=== PATIENT | female | born 1970 | race American Indian/Alaskan Native ===

== ENCOUNTER 2020-12-13 15:08 | Observation (INO) | payer BC ==
--- NOTE | 2020-12-13 16:43 | Event Note ---
ED Screening Note ED Screening Note: Patient presents for shortness of breath, fever, diarrhea, chest pain She states that she did receive both doses of her COVID-19 vaccine Patient is febrile and tachycardic This initial assessment/diagnostic orders/clinical plan/treatment(s) is/are subject to change based on patients health status, clinical progression and re- assessment by fellow clinical providers in the ED. Further treatment and workup at subsequent clinical providers discretion. Patient/guardian urged not to elope from the ED as their condition may be serious if not clinically assessed and managed. Initial orders include: Code sepsis initiated Patient's adjusted body weight is 92 kg, will order her fluids according to adjusted body weight
[2020-12-13] MEDS ORDERED: ACETAMINOPHEN 325 MG TAB PO ONE (16:44)
[2020-12-13] MEDS ORDERED: SODIUM CHLORIDE 0.9% 1000 ML IV SOLN IV ONE (16:44)
[2020-12-13 16:55] LABS: Basophils # (Auto) 0.1 K/mm3 (0.0-0.1); Basophils % (Auto) 0.8 % (0.0-1.8); Eosinophils # (Auto) 0.1 K/mm3 (0.0-0.4); Eosinophils % (Auto) 0.5 % (0.0-4.3); Hematocrit 40.4 % (30.3-42.9); Hemoglobin 13.6 gm/dl (10.1-14.3); Lymphocytes % (Auto) 9.5 % (13.4-35.0); Mean Corpuscular HGB Conc 34 % (30-34); Mean Corpuscular Volume 95 fl (79-97); Monocytes # (Auto) 0.6 K/mm3 (0.0-0.8); Monocytes % (Auto) 5.5 % (0.0-7.3); Platelet Count 332 K/mm3 (140-440); Red Blood Count 4.25 M/mm3 (3.65-5.03); Red Cell Distribution Width 13.6 % (13.2-15.2)
[2020-12-13 17:12] LABS: Alanine Aminotransferase 25 units/L (7-56); BUN/Creatinine Ratio 9; Blood Urea Nitrogen 7 mg/dL (7-17); Calcium 9.7 mg/dL (8.4-10.2); Hemolysis Index 2
--- NOTE | 2020-12-13 17:35 | XRay Report ---
XR chest 1V ap INDICATION / CLINICAL INFORMATION: fever, sob, cp. COMPARISON: 11/27/2019 FINDINGS: SUPPORT DEVICES: None. HEART /PULMONARY VASCULATURE: No significant abnormality. LUNGS / PLEURA: No significant pulmonary or pleural abnormality. No pneumothorax. ADDITIONAL FINDINGS: No significant additional findings. IMPRESSION: 1. No acute findings. Signer Name: Jeremy Engel MD Signed: 12/13/2020 5:30 PM Workstation Name: [id number]
--- NOTE | 2020-12-13 18:33 | Cat Scan Report ---
CT angio chest INDICATION / CLINICAL INFORMATION: SOB, elevated d-dimer [id number] 100ml. TECHNIQUE: Axial CT images were obtained through the chest after injection of IV contrast. 3 plane MIP and/or 3D reconstructions were produced. All CT scans at this location are performed using CT dose reduction f or ALARA by means of automated exposure control. COMPARISON: None available. FINDINGS: PULMONARY ARTERIES: No central pulmonary artery filling defects. Image quality of the peripheral pulm onary arteries essentially nondiagnostic due to respiratory motion and poor contrast. HEART: No significant abnormality. MEDIASTINUM / JUNITO: No significant abnormality. LUNGS: Lungs are clear No pleural effusion. No pneumothorax. ADDITIONAL FINDINGS: None. UPPER ABDOMEN: No acute findings. SKELETAL STRUCTURES: No significant osseous abnormality. IMPRESSION: 1. No central pulmonary embolism. Image quality of the distal pulmonary arteries essentially nondiagn ostic due to respiratory motion and poor contrast desiccation. 2. No acute pulmonary findings. Signer Name: Ney Gómez MD Signed: 12/13/2020 6:28 PM Workstation Name: [id number]
[2020-12-13] MEDS ORDERED: ACETAMINOPHEN 325 MG TAB ONE (22:22)
[2020-12-13] MEDS ORDERED: cefTRIAXone/NS 1 GM/50 ML 1 GM/50 ML BAG IV ONE (23:40)
[2020-12-13] MEDS ORDERED: KETOROLAC 30 MG/1 ML INJ IV ONE (23:40)
[2020-12-13] MEDS ORDERED: AZITHROMYCIN/NS 500 MG/250 ML 500 MG/250 ML BAG IV ONE (23:41)
--- NOTE | 2020-12-13 23:45 | Emergency Department Report ---
HPI - General Chief Complaint: Fever Time Seen by Provider: 12/13/20 16:40 - HPI HPI: 50-year-old female with history of hypertension presents complaining of 3 days of URI symptoms including fevers, body aches, malaise, and headaches. She describes her headache as global and pressure-like. She says it comes and goes and comes on gradually. She says it feels exactly like the last time she had COVID-19 at the beginning of this year. She is vaccinated against COVID-19. She says in addition to those symptoms she has developed diarrhea with at least 10 loose stools per day. She has a mild dry cough and intermittently feels short of breath with minimal activity. She developed generalized weakness which was very profound over the last day and this is what prompted her to come in for further evaluation. She denies any associated vision change, back pain, chest pain, palpitations, nausea/vomiting, neck pain, abdominal pain, dysuria, vaginal discharge, melena/hematochezia, focal weakness, sensory changes, or any other significant symptoms. On review of systems she also indicates that she has lost her sense of smell and taste. When asked during physical exam she states that sometimes her right lower extremity is more swollen than the left but it just depends on the day. There are otherwise no known aggravating or alleviating factors. She has had no known exposures. ED Past Medical Hx - Past Medical History Hx Hypertension: Yes Hx Congestive Heart Failure: No Hx Diabetes: No Hx Asthma: No Hx COPD: No Additional medical history: Chronic hip and shoulder pain. Degenerative joint disease. Fibromyalgia - Surgical History Additional Surgical History: tubal ligation - Social History Smoking Status: Never Smoker - Medications Home Medications: Home Medications Medication Instructions Recorded Confirmed Last Taken Type Metformin HCl 500 mg PO DAILY MDD 2 tab by mouth 11/27/19 11/27/19 11/24/19 History Phentermine HCl 37.5 mg PO DAILY 11/27/19 11/27/19 Unknown History Benzonatate [Tessalon Perles] 100 mg PO Q8HR #15 capsule 12/02/19 Unknown Rx Famotidine [Pepcid] 20 mg PO BID #20 tablet 12/02/19 Unknown Rx oxyCODONE /ACETAMINOPHEN [Percocet 1 tab PO QHS #6 tablet 12/02/19 Unknown Rx 5/325] ED Review of Systems ROS: Stated complaint: HEADACHE/FEVER Other details as noted in HPI Constitutional: chills, fever, malaise, weakness, other (body aches) Eyes: denies: eye pain, vision change ENT: denies: throat pain, congestion Respiratory: cough, SOB with exertion. denies: wheezing Cardiovascular: edema. denies: chest pain, palpitations, syncope Endocrine: other (anosmia). denies: intolerance to cold, intolerance to heat, increased hunger, increased thirst Gastrointestinal: diarrhea. denies: abdominal pain, nausea, vomiting, constipation, melena, hematochezia Genitourinary: denies: dysuria, hematuria, discharge Musculoskeletal: denies: back pain, joint swelling Skin: denies: rash, lesions Neurological: headache. denies: weakness, numbness, paresthesias, confusion Psychiatric: anxiety Physical Exam - Physical Exam Vital Signs: Vital Signs 12/13/20 16:35 Temperature 101.4 F H Pulse Rate 145 H Respiratory 32 H Rate Blood Pressure 148/106 [Right] O2 Sat by Pulse 99 Oximetry Physical Exam: GENERAL: Obese female in no acute distress. Appears somnolent but is alert and oriented x4. HEAD: Normocephalic. No obvious signs of trauma. ENT: Dry mucous membranes. EYES: Extraocular movements are intact. Pupils are equal round and reactive to light bilaterally NECK: Supple. Full ROM is intact. Trachea is midline. LUNGS: Nonlabored breathing. Equal chest rise bilaterally. Clear to auscultation bilaterally. CARDIOVASCULAR: Tachycardic in the 130s to 140s with regular rate. No murmurs or rubs. VASCULAR: Cap refill < 2 seconds. 2+ pitting edema of the right lower extremity and 1+ pitting edema of the left lower extremity. ABDOMEN: Abdomen is soft and nondistended. There is no significant tenderness, guarding or rebound. SKIN: Skin is warm and dry NEURO: Patient is somnolent but awake, alert, and oriented. plumber gasfitter II-XII grossly intact. No focal deficits. Normal motor and sensory exam throughout. Normal spe ech. MUSCULOSKELETAL: No obvious deformities. No significant tenderness. Normal ROM throughout. BACK/SPINE: No costovertebral angle tenderness. ED Course Vital Signs 12/13/20 16:35 Temperature 101.4 F H Pulse Rate 145 H Respiratory 32 H Rate Blood Pressure 148/106 [Right] O2 Sat by Pulse 99 Oximetry ED Medical Decision Making - Lab Data Result diagrams: 12/13/20 16:42 12/14/20 00:22 Lab Results 12/13/20 12/13/20 12/13/20 Range/Units 16:42 16:42 16:42 WBC 10.5 (4.5-11.0) K/mm3 RBC 4.25 (3.65-5.03) M/mm3 Hgb 13.6 (10.1-14.3) gm/dl Hct 40.4 (30.3-42.9) % MCV 95 (79-97) fl MCH 32 (28-32) pg MCHC 34 (30-34) % RDW 13.6 (13.2-15.2) % Plt Count 332 (140-440) K/mm3 Lymph % (Auto) 9.5 L (13.4-35.0) % Runnels % (Auto) 5.5 (0.0-7.3) % Eos % (Auto) 0.5 (0.0-4.3) % Baso % (Auto) 0.8 (0.0-1.8) % Lymph # (Auto) 1.0 L (1.2-5.4) K/mm3 Runnels # (Auto) 0.6 (0.0-0.8) K/mm3 Eos # (Auto) 0.1 (0.0-0.4) K/mm3 Baso # (Auto) 0.1 (0.0-0.1) K/mm3 Seg Neutrophils % 83.7 H (40.0-70.0) % Seg Neutrophils # 8.8 H (1.8-7.7) K/mm3 PT (12.2-14.9) Sec. INR (0.87-1.13) APTT (24.2-36.6) Sec. D-Dimer 355.73 H (0-234) ng/mlDDU Sodium 135 L (137-145) mmol/L Potassium 3.9 (3.6-5.0) mmol/L Chloride 99.4 (98-107) mmol/L Carbon Dioxide 24 (22-30) mmol/L Anion Gap 16 mmol/L BUN 7 (7-17) mg/dL Creatinine 0.8 (0.6-1.2) mg/dL Estimated GFR > 60 ml/min BUN/Creatinine Ratio 9 % Glucose 111 H (65-100) mg/dL Lactic Acid (0.7-2.0) mmol/L Calcium 9.7 (8.4-10.2) mg/dL Ferritin (10.0-200.0) ng/mL Total Bilirubin 0.30 (0.1-1.2) mg/dL AST 24 (5-40) units/L ALT 25 (7-56) units/L Alkaline Phosphatase 145 H (35-129) units/L Lactate Dehydrogenase (91-180) units/L Total Creatine Kinase 378 H (30-135) units/L Troponin T < 0.010 (0.00-0.029) ng/mL C-Reactive Protein (0.00-1.30) mg/dL NT-Pro-B Natriuret Pep (0-450) pg/mL Total Protein 8.9 H (6.3-8.2) g/dL Albumin 4.0 (3.9-5) g/dL Albumin/Globulin Ratio 0.8 % TSH (0.270-4.200) mlU/mL 12/13/20 12/13/20 12/14/20 Range/Units 16:42 19:52 00:22 WBC (4.5-11.0) K/mm3 RBC (3.65-5.03) M/mm3 Hgb (10.1-14.3) gm/dl Hct (30.3-42.9) % MCV (79-97) fl MCH (28-32) pg MCHC (30-34) % RDW (13.2-15.2) % Plt Count (140-440) K/mm3 Lymph % (Auto) (13.4-35.0) % Runnels % (Auto) (0.0-7.3) % Eos % (Auto) (0.0-4.3) % Baso % (Auto) (0.0-1.8) % Lymph # (Auto) (1.2-5.4) K/mm3 Runnels # (Auto) (0.0-0.8) K/mm3 Eos # (Auto) (0.0-0.4) K/mm3 Baso # (Auto) (0.0-0.1) K/mm3 Seg Neutrophils % (40.0-70.0) % Seg Neutrophils # (1.8-7.7) K/mm3 PT (12.2-14.9) Sec. INR (0.87-1.13) APTT (24.2-36.6) Sec. D-Dimer (0-234) ng/mlDDU Sodium (137-145) mmol/L Potassium (3.6-5.0) mmol/L Chloride (98-107) mmol/L Carbon Dioxide (22-30) mmol/L Anion Gap mmol/L BUN (7-17) mg/dL Creatinine (0.6-1.2) mg/dL Estimated GFR ml/min BUN/Creatinine Ratio % Glucose (65-100) mg/dL Lactic Acid 1.00 2.40 H* 1.10 (0.7-2.0) mmol/L Calcium (8.4-10.2) mg/dL Ferritin (10.0-200.0) ng/mL Total Bilirubin (0.1-1.2) mg/dL AST (5-40) units/L ALT (7-56) units/L Alkaline Phosphatase (35-129) units/L Lactate Dehydrogenase (91-180) units/L Total Creatine Kinase (30-135) units/L Troponin T (0.00-0.029) ng/mL C-Reactive Protein (0.00-1.30) mg/dL NT-Pro-B Natriuret Pep (0-450) pg/mL Total Protein (6.3-8.2) g/dL Albumin (3.9-5) g/dL Albumin/Globulin Ratio % TSH (0.270-4.200) mlU/mL 12/14/20 12/14/20 12/14/20 Range/Units 00:22 00:22 00:22 WBC (4.5-11.0) K/mm3 RBC (3.65-5.03) M/mm3 Hgb (10.1-14.3) gm/dl Hct (30.3-42.9) % MCV (79-97) fl MCH (28-32) pg MCHC (30-34) % RDW (13.2-15.2) % Plt Count (140-440) K/mm3 Lymph % (Auto) (13.4-35.0) % Runnels % (Auto) (0.0-7.3) % Eos % (Auto) (0.0-4.3) % Baso % (Auto) (0.0-1.8) % Lymph # (Auto) (1.2-5.4) K/mm3 Runnels # (Auto) (0.0-0.8) K/mm3 Eos # (Auto) (0.0-0.4) K/mm3 Baso # (Auto) (0.0-0.1) K/mm3 Seg Neutrophils % (40.0-70.0) % Seg Neutrophils # (1.8-7.7) K/mm3 PT 13.4 (12.2-14.9) Sec. INR 0.96 (0.87-1.13) APTT 28.7 (24.2-36.6) Sec. D-Dimer 480.46 H (0-234) ng/mlDDU Sodium (137-145) mmol/L Potassium (3.6-5.0) mmol/L Chloride (98-107) mmol/L Carbon Dioxide (22-30) mmol/L Anion Gap mmol/L BUN (7-17) mg/dL Creatinine (0.6-1.2) mg/dL Estimated GFR ml/min BUN/Creatinine Ratio % Glucose 107 H (65-100) mg/dL Lactic Acid (0.7-2.0) mmol/L Calcium (8.4-10.2) mg/dL Ferritin 82.8 (10.0-200.0) ng/mL Total Bilirubin (0.1-1.2) mg/dL AST (5-40) units/L ALT (7-56) units/L Alkaline Phosphatase (35-129) units/L Lactate Dehydrogenase 255 H (91-180) units/L Total Creatine Kinase (30-135) units/L Troponin T (0.00-0.029) ng/mL C-Reactive Protein 4.80 H (0.00-1.30) mg/dL NT-Pro-B Natriuret Pep (0-450) pg/mL Total Protein (6.3-8.2) g/dL Albumin (3.9-5) g/dL Albumin/Globulin Ratio % TSH (0.270-4.200) mlU/mL 08/31/21 08/31/21 08/31/21 Range/Units 00:22 00:22 00:22 WBC (4.5-11.0) K/mm3 RBC (3.65-5.03) M/mm3 Hgb (10.1-14.3) gm/dl Hct (30.3-42.9) % MCV (79-97) fl MCH (28-32) pg MCHC (30-34) % RDW (13.2-15.2) % Plt Count (140-440) K/mm3 Lymph % (Auto) (13.4-35.0) % Runnels % (Auto) (0.0-7.3) % Eos % (Auto) (0.0-4.3) % Baso % (Auto) (0.0-1.8) % Lymph # (Auto) (1.2-5.4) K/mm3 Runnels # (Auto) (0.0-0.8) K/mm3 Eos # (Auto) (0.0-0.4) K/mm3 Baso # (Auto) (0.0-0.1) K/mm3 Seg Neutrophils % (40.0-70.0) % Seg Neutrophils # (1.8-7.7) K/mm3 PT (12.2-14.9) Sec. INR (0.87-1.13) APTT (24.2-36.6) Sec. D-Dimer (0-234) ng/mlDDU Sodium (137-145) mmol/L Potassium (3.6-5.0) mmol/L Chloride (98-107) mmol/L Carbon Dioxide (22-30) mmol/L Anion Gap mmol/L BUN (7-17) mg/dL Creatinine (0.6-1.2) mg/dL Estimated GFR ml/min BUN/Creatinine Ratio % Glucose (65-100) mg/dL Lactic Acid (0.7-2.0) mmol/L Calcium (8.4-10.2) mg/dL Ferritin (10.0-200.0) ng/mL Total Bilirubin (0.1-1.2) mg/dL AST (5-40) units/L ALT (7-56) units/L Alkaline Phosphatase (35-129) units/L Lactate Dehydrogenase (91-180) units/L Total Creatine Kinase (30-135) units/L Troponin T < 0.010 (0.00-0.029) ng/mL C-Reactive Protein (0.00-1.30) mg/dL NT-Pro-B Natriuret Pep 186.6 (0-450) pg/mL Total Protein (6.3-8.2) g/dL Albumin (3.9-5) g/dL Albumin/Globulin Ratio % TSH 0.289 (0.270-4.200) mlU/mL - EKG Data -: EKG Interpreted by Me - EKG Data 12/13/20 23:42 Sinus tachycardia. Normal axis. Normal intervals. No ectopy. No significant anatomic ST segment or T wave abnormalities. - Radiology Data CT angio chest INDICATION / CLINICAL INFORMATION: SOB, elevated d-dimer [id number] 100ml. TECHNIQUE: Axial CT images were obtained through the chest after injection of IV contrast. 3 plane MIP and/or 3D reconstructions were produced. All CT scans at this location are performed using CT dose reduction for ALARA by means of automated exposure control. COMPARISON: None available. FINDINGS: PULMONARY ARTERIES: No central pulmonary artery filling defects. Image quality of the peripheral pulmonary arteries essentially nondiagnostic due to respiratory motion and poor contrast. HEART: No significant abnormality. MEDIASTINUM / JUNITO: No significant abnormality. LUNGS: Lungs are clear No pleural effusion. No pneumothorax. ADDITIONAL FINDINGS: None. UPPER ABDOMEN: No acute findings. SKELETAL STRUCTURES: No significant osseous abnormality. IMPRESSION: 1. No central pulmonary embolism. Image quality of the distal pulm onary arteries essentially nondiagnostic due to respiratory motion and poor contrast desiccation. 2. No acute pulmonary findings. Signer Name: Ney Gómez MD Signed: 12/13/2020 5:28 PM Workstation Name: [id number] DUPLEX DOPPLER LOWER EXTREMITY VEINS, BILATERAL INDICATION: swelling. TECHNIQUE: Duplex doppler imaging was performed through the veins of both lower extremities using venous compression and other maneuvers. COMPARISON: None available. FINDINGS: Right Common femoral vein: Negative. Right Superficial femoral vein: Negative. Right Popliteal vein: Negative. Right Calf veins: Negat espinoza. Left Common femoral vein: Negative. Left Superficial femoral vein: Negative. Left Popliteal vein: Negative. Left Calf veins: Negative. Additional findings: None. IMPRESSION: Negative for DVT. Signer Name: Flavio Marcelino MD Signed: 12/14/2020 12:29 AM Workstation Name: [id number] - Medical Decision Making 50-year-old female vaccinated against COVID-19 who presents with 3 days of fever, body aches, headache, mild cough with shortness of breath on exertion, and profound generalized weakness. Patient states that her symptoms and course are almost identical to when she had Covid at the beginning of this year. She has also lost her sense of smell and taste. On initial assessment she is noted to be febrile with a temperature of 101.4 and tachycardic with a heart rate in the 140s. She was tachypneic but with normal oxygen saturation on room air. When I assessed the patient, she had been in the acute waiting room for unknown amount of time receiving IV fluids. She is somnolent but arousable and alert and oriented x4. She has a nonfocal neurologic exam. She has dry mucous membranes. She remains tachycardic with a heart rate in the 130s. She is no longer tachypneic and lungs are clear to auscultation. She has no abdominal tenderness or CVA tenderness. She has 2+ edema of the right lower extremity and 1+ edema of the left lower extremity. The remainder of the physical pain is within normal limits. The patient had labs and studies done from triage. There is no significant leukocytosis or anemia. Kidney function is normal and there are no significant electrolyte abnormalities. She was noted to have slightly elevated CK of 378 and elevated lactate of 2.4 which decreased to 1.0 on repeat. Chest x-ray was performed and revealed no acute abnormalities. However, the patient had an elevated D-dimer and CTA of the chest was performed which revealed no central filling defects although peripheral pulmonary emboli could not be excluded on this study due to the contrast bolus and motion artifact. Patient has IV fluids ordered to total 30 mL/kg as well as Tylenol. I assessed the patient, she had received approximately 500 cc of IV fluid only. She reports feeling slightly better than when she first arrived but still with profound weakness and continues to have diarrhea. Given the history with loss of smell and taste I have high degree of suspicion for COVID-19. Nonetheless I have ordered IV ceftriaxone and azithromycin given the possibility of community- acquired pneumonia too early to be seen on imaging. I have ordered Toradol for fever and for her headache/body aches. I have ordered the COVID-19 order set, repeat troponin, coags, and bilateral venous ultrasound of the lower extremity to assess for evidence of DVT. We will continue to monitor the patient's vitals as she receives further IV fluids and medications. Repeat assessment at 3 AM, patient's tachycardia has improved slightly to the 110s-120s. Covid markers are elevated including CRP, LDH, and D-dimer. Patient remains with normal oxygen saturation. Bilateral lower extremity venous US are negative for DVT. Given that I suspect the patient has a breakthrough case of COVID-19 with severe symptoms, delevated lactate, and persistent tachycardia despite resuscitative fluids, she will need to be admitted to the hospitalist for further management. All of this was discussed with the patient who expressed understanding and agreement with the plan of care. At 3:30 I spoke with Kristin, the nurse practitioner working with the on-call hospitalist, Dr. Rey regarding the case. The patient is accepted for admission and the hospitalist team will assume care. Critical Care Time: Yes Critical care time in (mins) excluding proc time.: 35 Critical care attestation.: If time is entered above; I have spent that time in minutes in the direct care of this critically ill patient, excluding procedure time. Critical care time was spent in the evaluation/assessment, work-up, and management of sepsis related to suspected COVID-19 with elevated lactate and persistent tachycardia requiring resuscitative IV fluids, IV antibiotics, continuous monitoring and frequent reevaluation and reassessment. ED Disposition Clinical Impression: Suspected COVID-19 virus infection Sepsis Qualifiers: Sepsis type: sepsis due to unspecified organism Sepsis acute organ dysfunction status: without acute organ dysfunction Qualified Code(s): A41.9 - Sepsis, unspecified organism Disposition: 09 ADMITTED INPATIENT Is pt being admited?: Yes Condition: Fair
[2020-12-14 00:55] LABS: INR 0.96 (0.87-1.13)
[2020-12-14 00:56] LABS: Partial Thromboplastin Time 28.7 Sec. (24.2-36.6)
--- NOTE | 2020-12-14 01:33 | Vascular Lab Report ---
DUPLEX DOPPLER LOWER EXTREMITY VEINS, BILATERAL INDICATION: swelling. TECHNIQUE: Duplex doppler imaging was performed through the veins of both lower extremities using venous rosa maria elena and other maneuvers. COMPARISON: None available. FINDINGS: Right Common femoral vein: Negative. Right Superficial femoral vein: Negative. Right Popliteal vein: Negative. Right Calf veins: Negative. Left Common femoral vein: Negative. Left Superficial femoral vein: Negative. Left Popliteal vein: Negative. Left Calf veins: Negative. Additional findings: None. IMPRESSION: Negative for DVT. Signer Name: Flavio Marcelino MD Signed: 12/14/2020 1:29 AM Workstation Name: [id number]
[2020-12-14 02:05] LABS: C-Reactive Protein 4.8 mg/dL (0.00-1.30)
[2020-12-14] MEDS ORDERED: AZITHROMYCIN/NS 500 MG/250 ML 500 MG/250 ML BAG IV ONE (03:00)
[2020-12-14] MEDS ORDERED: KETOROLAC 30 MG/1 ML INJ IV ONE (03:00)
[2020-12-14] MEDS ORDERED: ACETAMINOPHEN 325 MG TAB PO PRN (03:50)
[2020-12-14] MEDS ORDERED: ONDANSETRON 4 MG/2 ML INJ IV PRN (03:50)
[2020-12-14] MEDS ORDERED: NALOXONE 0.4 MG/1 ML INJ IV PRN (03:50)
[2020-12-14] MEDS ORDERED: METOPROLOL TARTRATE 5 MG/5 ML INJ IV ONE (03:54)
[2020-12-14] MEDS ORDERED: ALBUTEROL 8.5 GM MDI INHALATION IH PRN (03:55)
--- NOTE | 2020-12-14 05:12 | History and Physical Report ---
History of Present Illness Date of examination: 12/14/20 Date of admission: 12/14/2020 Chief complaint: Flulike symptoms History of present illness: 50-year-old -Romanian female with history of hypertension, and COVID-19 virus infection, who presents [facility] ED with complaints of fever, chills, body ache, malaise, and headache x3 days. Of note patient states that she had COVID- 19 in the beginning of this year and is fully vaccinated with the Moderna vaccine. Endorses loss of smell and taste, none bloody diarrhea (approximately 10 loose stools daily, x10 days), dyspnea with minimal exertion, and nonproductive cough. Patient states that her generalized weakness has worsened over the past day, so she decided to come into the ED for further evaluation and treatment. Denies nausea, vomiting, abdominal pain, sputum production, hemoptysis, hematic emesis, constipation, or recent known exposure Past History Past Medical History: hypertension, other (DJD, fibromyalgia, chronic hip and shoulder pain, COVID-19 virus infection) Past Surgical History: Other (Tubal ligation) Social history: single, IV drug use. denies: smoking, alcohol abuse, prescription drug abuse Family history: hypertension Medications and Allergies Allergies Allergy/AdvReac Type Severity Reaction Status Date / Time No Known Allergies Allergy Verified 12/13/20 16:38 Home Medications Medication Instructions Recorded Confirmed Last Taken Type Metformin HCl 500 mg PO DAILY MDD 2 tab by mouth 11/27/19 11/27/19 11/24/19 History Phentermine HCl 37.5 mg PO DAILY 11/27/19 11/27/19 Unknown History Benzonatate [Tessalon Perles] 100 mg PO Q8HR #15 capsule 12/02/19 Unknown Rx Famotidine [Pepcid] 20 mg PO BID #20 tablet 12/02/19 Unknown Rx oxyCODONE /ACETAMINOPHEN [Percocet 1 tab PO QHS #6 tablet 12/02/19 Unknown Rx 5/325] Active Meds: Active Medications Acetaminophen (Acetaminophen 325 Mg Tab) 650 mg PO Q4H PRN PRN Reason: Pain MILD(1-3)/Fever >100.5/LOAIZA Albuterol (Albuterol 8.5 Gm Mdi Inhalation) 2 puff IH Q4HRT PRN PRN Reason: Shortness Of Breath Docusate Sodium (Docusate Sodium 100 Mg Cap) 100 mg PO BID CAREY Enoxaparin Sodium (Enoxaparin 40 Mg/0.4 Ml Inj) 40 mg SUB-Q QDAY CAREY Famotidine (Famotidine 20 Mg/2 Ml Inj) 10 mg IV BID CAREY Morphine Sulfate (Morphine 4 Mg/1 Ml Inj) 4 mg IV Q4H PRN PRN Reason: Pain , Severe (7-10) Naloxone HCl (Naloxone 0.4 Mg/1 Ml Inj) 0.1 mg IV Q2MIN PRN PRN Reason: Res Rate </= 8 or 02 SAT < 92% Ondansetron HCl (Ondansetron 4 Mg/2 Ml Inj) 4 mg IV Q6H PRN PRN Reason: Nausea And Vomiting Oxycodone/Acetaminophen (Oxycodone /Acetaminophen 5-325mg Tab) 1 tab PO Q6H PRN PRN Reason: Pain, Moderate (4-6) Sodium Chloride (Sodium Chloride 0.9% 10 Ml Flush Syringe) 10 ml IV BID CAREY Sodium Chloride (Sodium Chloride 0.9% 10 Ml Flush Syringe) 10 ml IV PRN PRN PRN Reason: LINE FLUSH Review of Systems ROS unobtainable: due to endotracheal tube All systems: negative (As noted in HPI) Exam - Physical Exam Narrative exam: Physical exam General appearance: Present: No acute distress, resting, easily aroused, oriented 3, obese, adult female - EENT Eyes: Present: PERRL, EOM intact ENT: hearing intact, normal dentition - Neck Neck: Present: supple, normal ROM - Respiratory Respiratory effort: Non-labored Respiratory: Clear throughout - Cardiovascular Heart rate: 117( bpm) Rhythm: Sinus tachycardia Heart Sounds: Present: S1 & S2. Absent: rub, click - Extremities Extremities: no ischemia, pulses intact, - Peripheral Assessment Peripheral Pulses: within normal limits - Abdominal General gastrointestinal: Obese, soft, non-tender, normal bowel sounds - Integumentary Integumentary: Present: warm, dry - Musculoskeletal Musculoskeletal: Able to move all extremities, generalized weakness -Neurological Neurological: CN II-XII intact - Psychiatric Psychiatric: cooperative - Constitutional Vitals: Temp Pulse Resp BP Pulse Ox 101.2 F H 117 H 23 153/95 95 12/13/20 22:09 12/14/20 03:26 12/14/20 03:26 12/14/20 03:26 12/14/20 03:26 HEART Score - HEART Score Troponin: WBC 10.5 K/mm3 (4.5-11.0) 12/13/20 16:42 RBC 4.25 M/mm3 (3.65-5.03) 12/13/20 16:42 Hgb 13.6 gm/dl (10.1-14.3) 12/13/20 16:42 Hct 40.4 % (30.3-42.9) 12/13/20 16:42 MCV 95 fl (79-97) 12/13/20 16:42 MCH 32 pg (28-32) 12/13/20 16:42 MCHC 34 % (30-34) 12/13/20 16:42 RDW 13.6 % (13.2-15.2) 12/13/20 16:42 Plt Count 332 K/mm3 (140-440) 12/13/20 16:42 Lymph % (Auto) 9.5 % (13.4-35.0) L 12/13/20 16:42 Turner % (Auto) 5.5 % (0.0-7.3) 12/13/20 16:42 Eos % (Auto) 0.5 % (0.0-4.3) 12/13/20 16:42 Baso % (Auto) 0.8 % (0.0-1.8) 12/13/20 16:42 Lymph # (Auto) 1.0 K/mm3 (1.2-5.4) L 12/13/20 16:42 Turner # (Auto) 0.6 K/mm3 (0.0-0.8) 12/13/20 16:42 Eos # (Auto) 0.1 K/mm3 (0.0-0.4) 12/13/20 16:42 Baso # (Auto) 0.1 K/mm3 (0.0-0.1) 12/13/20 16:42 Seg Neutrophils % 83.7 % (40.0-70.0) H 12/13/20 16:42 Seg Neutrophils # 8.8 K/mm3 (1.8-7.7) H 12/13/20 16:42 PT 13.4 Sec. (12.2-14.9) 12/14/20 00:22 INR 0.96 (0.87-1.13) 12/14/20 00:22 APTT 28.7 Sec. (24.2-36.6) 12/14/20 00:22 D-Dimer 480.46 ng/mlDDU (0-234) H 12/14/20 00:22 Sodium 135 mmol/L (137-145) L 12/13/20 16:42 Potassium 3.9 mmol/L (3.6-5.0) 12/13/20 16:42 Chloride 99.4 mmol/L (98-107) 12/13/20 16:42 Carbon Dioxide 24 mmol/L (22-30) 12/13/20 16:42 Anion Gap 16 mmol/L 12/13/20 16:42 BUN 7 mg/dL (7-17) 12/13/20 16:42 Creatinine 0.8 mg/dL (0.6-1.2) 12/13/20 16:42 Estimated GFR > 60 ml/min 12/13/20 16:42 BUN/Creatinine Ratio 9 % 12/13/20 16:42 Glucose 107 mg/dL (65-100) H 12/14/20 00:22 Lactic Acid 1.10 mmol/L (0.7-2.0) 12/14/20 00:22 Calcium 9.7 mg/dL (8.4-10.2) 12/13/20 16:42 Ferritin 82.8 ng/mL (10.0-200.0) 12/14/20 00:22 Total Bilirubin 0.30 mg/dL (0.1-1.2) 12/13/20 16:42 AST 24 units/L (5-40) 12/13/20 16:42 ALT 25 units/L (7-56) 12/13/20 16:42 Alkaline Phosphatase 145 units/L (35-129) H 12/13/20 16:42 Lactate Dehydrogenase 255 units/L (91-180) H 12/14/20 00:22 Total Creatine Kinase 378 units/L (30-135) H 12/13/20 16:42 Troponin T < 0.010 ng/mL (0.00-0.029) 12/14/20 00:22 C-Reactive Protein 4.80 mg/dL (0.00-1.30) H 12/14/20 00:22 NT-Pro-B Natriuret Pep 186.6 pg/mL (0-450) 12/14/20 00:22 Total Protein 8.9 g/dL (6.3-8.2) H 12/13/20 16:42 Albumin 4.0 g/dL (3.9-5) 12/13/20 16:42 Albumin/Globulin Ratio 0.8 % 12/13/20 16:42 TSH 0.289 mlU/mL (0.270-4.200) 12/14/20 00:22 Results - Labs CBC & Chem 7: 12/13/20 16:42 12/14/20 00:22 Labs: Laboratory Last Values WBC 10.5 K/mm3 (4.5-11.0) 12/13/20 16:42 RBC 4.25 M/mm3 (3.65-5.03) 12/13/20 16:42 Hgb 13.6 gm/dl (10.1-14.3) 12/13/20 16:42 Hct 40.4 % (30.3-42.9) 12/13/20 16:42 MCV 95 fl (79-97) 12/13/20 16:42 MCH 32 pg (28-32) 12/13/20 16:42 MCHC 34 % (30-34) 12/13/20 16:42 RDW 13.6 % (13.2-15.2) 12/13/20 16:42 Plt Count 332 K/mm3 (140-440) 12/13/20 16:42 Lymph % (Auto) 9.5 % (13.4-35.0) L 12/13/20 16:42 Turner % (Auto) 5.5 % (0.0-7.3) 12/13/20 16:42 Eos % (Auto) 0.5 % (0.0-4.3) 12/13/20 16:42 Baso % (Auto) 0.8 % (0.0-1.8) 12/13/20 16:42 Lymph # (Auto) 1.0 K/mm3 (1.2-5.4) L 12/13/20 16:42 Turner # (Auto) 0.6 K/mm3 (0.0-0.8) 12/13/20 16:42 Eos # (Auto) 0.1 K/mm3 (0.0-0.4) 12/13/20 16:42 Baso # (Auto) 0.1 K/mm3 (0.0-0.1) 12/13/20 16:42 Seg Neutrophils % 83.7 % (40.0-70.0) H 12/13/20 16:42 Seg Neutrophils # 8.8 K/mm3 (1.8-7.7) H 12/13/20 16:42 PT 13.4 Sec. (12.2-14.9) 12/14/20 00:22 INR 0.96 (0.87-1.13) 12/14/20 00:22 APTT 28.7 Sec. (24.2-36.6) 12/14/20 00:22 D-Dimer 480.46 ng/mlDDU (0-234) H 12/14/20 00:22 Sodium 135 mmol/L (137-145) L 12/13/20 16:42 Potassium 3.9 mmol/L (3.6-5.0) 12/13/20 16:42 Chloride 99.4 mmol/L (98-107) 12/13/20 16:42 Carbon Dioxide 24 mmol/L (22-30) 12/13/20 16:42 Anion Gap 16 mmol/L 12/13/20 16:42 BUN 7 mg/dL (7-17) 12/13/20 16:42 Creatinine 0.8 mg/dL (0.6-1.2) 12/13/20 16:42 Estimated GFR > 60 ml/min 12/13/20 16:42 BUN/Creatinine Ratio 9 % 12/13/20 16:42 Glucose 107 mg/dL (65-100) H 12/14/20 00:22 Lactic Acid 1.10 mmol/L (0.7-2.0) 12/14/20 00:22 Calcium 9.7 mg/dL (8.4-10.2) 12/13/20 16:42 Ferritin 82.8 ng/mL (10.0-200.0) 12/14/20 00:22 Total Bilirubin 0.30 mg/dL (0.1-1.2) 12/13/20 16:42 AST 24 units/L (5-40) 12/13/20 16:42 ALT 25 units/L (7-56) 12/13/20 16:42 Alkaline Phosphatase 145 units/L (35-129) H 12/13/20 16:42 Lactate Dehydrogenase 255 units/L (91-180) H 12/14/20 00:22 Total Creatine Kinase 378 units/L (30-135) H 12/13/20 16:42 Troponin T < 0.010 ng/mL (0.00-0.029) 12/14/20 00:22 C-Reactive Protein 4.80 mg/dL (0.00-1.30) H 12/14/20 00:22 NT-Pro-B Natriuret Pep 186.6 pg/mL (0-450) 12/14/20 00:22 Total Protein 8.9 g/dL (6.3-8.2) H 12/13/20 16:42 Albumin 4.0 g/dL (3.9-5) 12/13/20 16:42 Albumin/Globulin Ratio 0.8 % 12/13/20 16:42 TSH 0.289 mlU/mL (0.270-4.200) 12/14/20 00:22 Microbiology: Microbiology 12/13/20 16:48 Peripheral/Venous Blood Culture - Preliminary Culture in Progress 12/13/20 16:42 Peripheral/Venous Blood Culture - Preliminary Culture in Progress - Imaging and Cardiology Imaging and Cardiology: CXR: FINDINGS: SUPPORT DEVICES: None. HEART /PULMONARY VASCULATURE: No significant abnormality. LUNGS / PLEURA: No significant pulmonary or pleural abnormality. No pneumothorax. ADDITIONAL FINDINGS: No significant additional findings. IMPRESSION: 1. No acute findings. CT angio Chest: FINDINGS: PULMONARY ARTERIES: No central pulmonary artery filling defects. Image quality of the peripheral pulmonary arteries essentially nondiagnostic due to respiratory motion and poor contrast. HEART: No significant abnormality. MEDIASTINUM / JUNITO: No significant abnormality. LUNGS: Lungs are clear No pleural effusion. No pneumothorax. ADDITIONAL FINDINGS: None. UPPER ABDOMEN: No acute findings. SKELETAL STRUCTURES: No significant osseous abnormality. IMPRESSION: 1. No central pulmonary embolism. Image quality of the distal pulmonary arteries essentially nondiagnostic due to respiratory motion and poor contrast desiccation. 2. No acute pulmonary findings. BiLat Venous Duplex: COMPARISON: None available. FINDINGS: Right Common femoral vein: Negative. Right Superficial femoral vein: Negative. Right Popliteal vein: Negative. Right Calf veins: Negative. Left Common femoral vein: Negative. Left Superficial femoral vein: Negative. Left Popliteal vein: Negative. Left Calf veins: Negative. Additional findings: None. IMPRESSION: Negative for DVT. Assessment and Plan Assessment and plan: 50-year-old -Romanian female with history of hypertension, and COVID-19 virus infection, who presents [facility] ED with complaints of fever, chills, body ache, malaise, and headache x3 days. Of note patient states that she had COVID- 19 in the beginning of this year and is fully vaccinated with the Moderna vaccine. Endorses loss of smell and taste, none bloody diarrhea (approximately 10 loose stools daily, x10 days), dyspnea with minimal exertion, and nonproductive cough. Patient states that her generalized weakness has worsened over the past day, so she decided to come into the ED for further evaluation and treatment. Denies nausea, vomiting, abdominal pain, sputum production, hemoptysis, hematic emesis, constipation, or recent known exposure Suspected COVID-19 virus infection -Patient has previous history of COVID-19 -Reports being fully vaccinated with Moderna vaccine -PCR pending -Elevated Covid inflammatory markers -Follow-up on pending labs -Received empiric dose of azithromycin and Rocephin in ED; will hold off for now on continuing IV ABX -ID consult pending Elevated D-dimer -At 480.46 -CT angio and bilateral Dopplers negative for PE -On DVT PPx Lovenox Lactic acidosis -Lactic acid on admission 2.40 -Received IV Abx and IVF -Cultures pending -Now 1.10 -Continue to monitor -No leukocytosis Tachycardia -EKG shows sinus tach -?? Due to COVID-19 virus infection -Received IVF -On continuous remote telemetry monitoring -Ordered one-time dose of IV metoprolol -Monitor may need to start scheduled beta-layo, and consult cardiology DVT and GI PPX -On Lovenox and Pepcid Advance Directives: No VTE prophylaxis?: Chemical, Mechanical Plan of care discussed with patient/family: Yes
[2020-12-14] MEDS: oxyCODONE /ACETAMINOPHEN 5-325MG TAB PO PRN ×2 (09:30→22:24)
[2020-12-14] MEDS: MORPHINE 4 MG/1 ML INJ IV PRN ×2 (09:35→22:23)
--- NOTE | 2020-12-14 09:48 | Electrocardiograph Report ---
[facility] Test Date: 2020-12-13 Test Time: 16:53:17 Pat Name: BAR HANSON Department: Room: [place] [address] Gender: F Financial Agent: DEMETRICE : 1970 Requested By: GIRMA HARDIN Order Number: [id number] Reading MD: Yoan Farooq Measurements Intervals [place] Rate: 140 P: 34 NE: 138 QRS: -27 QRSD: 93 T: 9 QT: 285 QTc: 436 Interpretive Statements Sinus tachycardia [id number] No previous ECG available for comparison Electronically Signed On 12-14-2020 9:48:23 EDT by Yoan Farooq
[2020-12-14] MEDS ORDERED: ENOXAPARIN 40 MG/0.4 ML INJ SUB-Q SCH (10:00)
--- NOTE | 2020-12-14 12:04 | Consultation ---
History of Present Illness - Reason for Consult Consult date: 12/14/20 - History of Present Illness 50-year-old female past medical history pretension, Covid earlier this year presented to hospital with fevers, chills, malaise, headaches. This began approximate 3 days prior to admission. Of note the patient is fully vaccinated with Moderna. She reports associated diarrhea, dysgeusia, anosmia. Febrile to 101.4 with tachycardia and tachypnea. White count 10.5, Covid testing pending. Normal procalcitonin. Normal renal function. Blood cultures no growth so far. Imaging personally reviewed: Chest CTA: No pulmonary embolism. No acute pulmonary findings. Review of systems: Deferred to reduce to the risk of transmission of COVID-19 Past History Past Medical History: hypertension, other (DJD, fibromyalgia, chronic hip and shoulder pain, COVID-19 virus infection) Past Surgical History: Other (Tubal ligation) Social history: single, IV drug use. denies: smoking, alcohol abuse, prescription drug abuse Family history: hypertension Medications and Allergies Allergies Allergy/AdvReac Type Severity Reaction Status Date / Time No Known Allergies Allergy Verified 12/13/20 16:38 Home Medications Medication Instructions Recorded Confirmed Last Taken Type Metformin HCl 500 mg PO DAILY MDD 2 tab by mouth 11/27/19 11/27/19 11/24/19 History Phentermine HCl 37.5 mg PO DAILY 11/27/19 11/27/19 Unknown History Benzonatate [Tessalon Perles] 100 mg PO Q8HR #15 capsule 12/02/19 Unknown Rx Famotidine [Pepcid] 20 mg PO BID #20 tablet 12/02/19 Unknown Rx oxyCODONE /ACETAMINOPHEN [Percocet 1 tab PO QHS #6 tablet 12/02/19 Unknown Rx 5/325] Active Meds: Active Medications Acetaminophen (Acetaminophen 325 Mg Tab) 650 mg PO Q4H PRN PRN Reason: Pain MILD(1-3)/Fever >100.5/LOAIZA Albuterol (Albuterol 8.5 Gm Mdi Inhalation) 2 puff IH Q4HRT PRN PRN Reason: Shortness Of Breath Docusate Sodium (Docusate Sodium 100 Mg Cap) 100 mg PO BID CAREY Enoxaparin Sodium (Enoxaparin 40 Mg/0.4 Ml Inj) 40 mg SUB-Q QDAY CAREY Famotidine (Famotidine 20 Mg/2 Ml Inj) 10 mg IV BID CAREY Morphine Sulfate (Morphine 4 Mg/1 Ml Inj) 4 mg IV Q4H PRN PRN Reason: Pain , Severe (7-10) Naloxone HCl (Naloxone 0.4 Mg/1 Ml Inj) 0.1 mg IV Q2MIN PRN PRN Reason: Res Rate </= 8 or 02 SAT < 92% Ondansetron HCl (Ondansetron 4 Mg/2 Ml Inj) 4 mg IV Q6H PRN PRN Reason: Nausea And Vomiting Oxycodone/Acetaminophen (Oxycodone /Acetaminophen 5-325mg Tab) 1 tab PO Q6H PRN PRN Reason: Pain, Moderate (4-6) Sodium Chloride (Sodium Chloride 0.9% 10 Ml Flush Syringe) 10 ml IV BID CAREY Sodium Chloride (Sodium Chloride 0.9% 10 Ml Flush Syringe) 10 ml IV PRN PRN PRN Reason: LINE FLUSH Physical Examination - Physical Exam Narrative exam: Physical exam deferred to reduce risk of transmission of COVID-19. Please refer to primary team's note. - Constitutional Vitals: Vital Signs Temp Pulse Resp BP Pulse Ox 101.2 F H 117 H 23 153/95 95 12/13/20 22:09 12/14/20 03:26 12/14/20 03:26 12/14/20 03:26 12/14/20 03:26 Temperature -Last 24 Hours Temperature 101.2 F Temperature 101.4 F Results - Labs CBC & Chem 7: 12/13/20 16:42 12/14/20 00:22 Labs: Abnormal lab results 12/13/20 12/13/20 12/13/20 Range/Units 16:42 16:42 16:42 Lymph % (Auto) 9.5 L (13.4-35.0) % Lymph # (Auto) 1.0 L (1.2-5.4) K/mm3 Seg Neutrophils % 83.7 H (40.0-70.0) % Seg Neutrophils # 8.8 H (1.8-7.7) K/mm3 D-Dimer 355.73 H (0-234) ng/mlDDU Sodium 135 L (137-145) mmol/L Glucose 111 H (65-100) mg/dL Lactic Acid (0.7-2.0) mmol/L Alkaline Phosphatase 145 H (35-129) units/L Lactate Dehydrogenase (91-180) units/L Total Creatine Kinase 378 H (30-135) units/L C-Reactive Protein (0.00-1.30) mg/dL Total Protein 8.9 H (6.3-8.2) g/dL 12/13/20 12/14/20 12/14/20 Range/Units 19:52 00:22 00:22 Lymph % (Auto) (13.4-35.0) % Lymph # (Auto) (1.2-5.4) K/mm3 Seg Neutrophils % (40.0-70.0) % Seg Neutrophils # (1.8-7.7) K/mm3 D-Dimer 480.46 H (0-234) ng/mlDDU Sodium (137-145) mmol/L Glucose 107 H (65-100) mg/dL Lactic Acid 2.40 H* (0.7-2.0) mmol/L Alkaline Phosphatase (35-129) units/L Lactate Dehydrogenase 255 H (91-180) units/L Total Creatine Kinase (30-135) units/L C-Reactive Protein 4.80 H (0.00-1.30) mg/dL Total Protein (6.3-8.2) g/dL Assessment and Plan Cultures: Blood culture no growth so far COVID pending A/P: 50-year-old female past medical history hypertension, Covid earlier this year admitted as PUI #COVID PUI: had COVID earlier this year, and is vaccinated with Moderna. Breakthrough cases such as this are possible if unlikely. Her symptoms are typical, however. Await positive test prior to any COVID specific therapies. Normal procalcitonin. No PNA on CXR #Morbid obesity: If COVID positive, ?dampening response to vaccine Recs: -Follow up COVID PCR testing -If positive and hypoxic recommend dexamethasone -If positive and requiring supplemental O2, recommend remdesivir. -Anticoagulation per hospital protocol Thank you for the consult, we will continue to follow. MD Felipe Carlson [facility] ([facility]) O: [phone] F: [phone]
[2020-12-14] MEDS: DOCUSATE SODIUM 100 MG CAP PO SCH ×2 (14:18→22:22)
[2020-12-14] MEDS: FAMOTIDINE 20 MG/2 ML INJ IV SCH ×2 (14:19→22:22)
--- NOTE | 2020-12-14 15:34 | Event Note ---
Date: 12/14/20 This is the second visit after midnight Patient seen and examined Patient presented with fever, tachycardia tachypnea and difficulty breathing Lower extremity venous Doppler is negative, CTA chest showed no PE but unable to visualize distal pulmonary arteries Patient continued to complains of shortness of breath Blood culture pending, patient noted to have spiking fever elevated lactic acid level on admission Currently on Rocephin, will continue to follow blood culture result, will follow UA and urine culture result We will reevaluate the patient with pulmonary VQ scan Patient had elevated D-dimer and a CTA chest is unequivocal will cover with therapeutic Lovenox for now Continue to follow clinically, supportive care It took me about 28 minutes to reevaluate and reasses this patient, discussed with RN/CM, review medical documents, lab results, imaging, medication list and placing order.
[2020-12-14] MEDS: ENOXAPARIN 150 MG/1 ML INJ SUB-Q SCH (18:42)
--- NOTE | 2020-12-14 21:42 | Nuclear Medicine Report ---
Perfusion only examination INDICATION: Possible PE COMPARISON: 12/13/2020 FINDINGS: 5.6 mCi of technetium 99 MAA was administered. No large perfusional defect is definitely id entified. IMPRESSION: Low probability for PTE on perfusional exam. Signer Name: Greame Valero MD Signed: 12/14/2020 9:38 PM Workstation Name: [id number]
[2020-12-15 05:54] LABS: Basophils % (Auto) 0.4 % (0.0-1.8); Eosinophils # (Auto) 0.1 K/mm3 (0.0-0.4); Eosinophils % (Auto) 1.2 % (0.0-4.3); Hematocrit 36.6 % (30.3-42.9); Hemoglobin 12.2 gm/dl (10.1-14.3); Lymphocytes % (Auto) 24.9 % (13.4-35.0); Mean Corpuscular HGB Conc 33 % (30-34); Mean Corpuscular Volume 96 fl (79-97); Monocytes # (Auto) 0.9 K/mm3 (0.0-0.8); Platelet Count 282 K/mm3 (140-440); Red Blood Count 3.81 M/mm3 (3.65-5.03); Red Cell Distribution Width 13.8 % (13.2-15.2)
[2020-12-15 06:08] LABS: Alanine Aminotransferase 20 units/L (7-56); Albumin 3.5 g/dL (3.9-5); BUN/Creatinine Ratio 15; Blood Urea Nitrogen 15 mg/dL (7-17); Calcium 9.2 mg/dL (8.4-10.2); Hemolysis Index 4
[2020-12-15] MEDS: oxyCODONE /ACETAMINOPHEN 5-325MG TAB PO PRN ×2 (06:10→11:43)
[2020-12-15 11:32] VITALS: BP 124/79
[2020-12-15] MEDS: ENOXAPARIN 150 MG/1 ML INJ SUB-Q SCH (11:32)
[2020-12-15] MEDS: FAMOTIDINE 20 MG/2 ML INJ IV SCH (11:33)
[2020-12-15] MEDS: DOCUSATE SODIUM 100 MG CAP PO SCH (11:33)
--- NOTE | 2020-12-15 12:41 | Discharge Summary ---
Providers - Providers Date of Admission: 12/14/20 03:50 Date of discharge: 12/15/20 Attending physician: PATRICIA BANG 12/14/20 03:50 Consult to Physician [CONS] Routine Comment: Consulting Provider: BRIANNA SCHRADER Physician Instructions: Reason For Exam: Recurrent Covid infection Primary care physician: [employer] Hospitalization Condition: Fair Pertinent studies: CXR, CTA chest, LE venous doppler. VQ scan Hospital course: 50-year-old female past medical history of hypretension, DM type 2, h/o Covid earlier this year presented to hospital with fevers, chills, malaise, headaches which has began approximate 3 days prior to admission. Of note the patient is fully vaccinated with Moderna. On admission Febrile to 101.4 with tachycardia and tachypnea. White count 10.5, Covid testing pending. Normal procalcitonin. Normal renal function. Blood cultures no growth so far. Chest CTA: No pulmonary embolism. No acute pulmonary findings. VQ scan low probability for PE. Patient remained afebrile and symptoms stabilized. Patient was discharged home in stable condition with his CPAP to treat for acute bronchitis. Discharge planning management was thoroughly discussed with the patient and she verbalized understanding. Disposition: 01 HOME / SELF CARE / HOMELESS Final Discharge Diagnosis (Prints w/discharge instructions): --Febrile illness, likely due to acute bronchitis. --Hypertension. --Fibromyalgia. --Chronic hip and shoulder pain. --History of COVID-19 virus infection. --Morbid obesity Time spent for discharge: 34 minutes Core Measure Documentation - Palliative Care Palliative Care/ Comfort Measures: Not Applicable - Core Measures Any of the following diagnoses?: none Exam - Physical Exam Narrative exam: GENERAL: well-developed and morbidly obese -Vietnamese female lying on bed appeared to be in no discomfort. HEENT: Normocephalic. Atraumatic. No conjunctival congestion or icterus. Patient has moist mucous membranes. NECK: Supple. Trachea midline. CHEST/LUNGS: Clear to auscultated bilaterally, breathing nonlabored. No wheezes crackles or rhonchi. HEART/CARDIOVASCULAR: Regular in rate and rhythm. S1 and S2 positive. ABDOMEN: Abdomen is soft, nontender. Patient has normal bowel sounds. SKIN: There is no rash. Warm and dry. NEURO: No focal motor deficit. Follows command. MUSCULOSKELETAL: No joint effusion or tenderness. EXTRIMITY: No edema, no cyanosis or clubbing. PSYCH: Cooperative. - Constitutional Vitals: Temp Pulse Resp BP Pulse Ox 98.1 F 57 L 18 124/79 100 12/15/20 08:58 12/15/20 08:58 12/15/20 08:58 12/15/20 08:58 12/15/20 08:58 Plan Activity: advance as tolerated Weight Bearing Status: Weight Bear as Tolerated Diet: low fat, low salt, diabetic Follow up with: PRIMARY MD SANDY [Primary Care Provider] - 7 Days AUREA LEVI MD [Staff Physician] - 7 Days
--- NOTE | 2020-12-15 16:04 | Progress Note ---
Assessment and Plan Cultures: Blood culture no growth so far COVID negative A/P: 50-year-old female past medical history hypertension, Covid earlier this year admitted as PUI #COVID PUI: Covid testing negative #Morbid obesity: If COVID positive, ?dampening response to vaccine Recs: -No need for antibiotics. Thank you for the consult, we will sign off. Please call with questions. Александр Au MD [facility] ([facility]) O: [phone] F: [phone] Subjective Date of service: 12/15/20 Interval history: Afebrile, white count slightly elevated at 11.9. Covid negative. Blood cultures remain no growth so far. Objective - Exam Narrative Exam: Physical exam deferred to reduce risk of transmission of COVID-19. Please refer to primary team's note. - Constitutional Vitals: Vital Signs Temp Pulse Resp BP Pulse Ox 98.1 F 57 L 18 124/79 100 12/15/20 08:58 12/15/20 08:58 12/15/20 08:58 12/15/20 08:58 12/15/20 08:58 Temperature -Last 24 Hours Temperature 98.1 F Temperature 98.5 F Temperature 98.8 F - Labs CBC & Chem 7: 12/15/20 04:42 12/15/20 04:42 Labs: Abnormal lab results 12/15/20 12/15/20 Range/Units 04:42 04:42 WBC 11.9 H (4.5-11.0) K/mm3 Rains % (Auto) 8.0 H (0.0-7.3) % Rains # (Auto) 0.9 H (0.0-0.8) K/mm3 Seg Neutrophils # 7.8 H (1.8-7.7) K/mm3 Glucose 160 H (65-100) mg/dL Albumin 3.5 L (3.9-5) g/dL
== END 2020-12-15 16:30 | disposition home or self-care (01) ==
LOC: ED 15:08 → INTOOBSV 12-14 03:50 → 3A 12-14 03:50 → 4A 12-14 19:10
PROVIDERS: ADMIT Internal Medicine Geriatric Medicine; ATTEND Internal Medicine
DX: A41.9 Sepsis, unspecified organism (principal); Z20.822 Contact with and (suspected) exposure to COVID-19; E66.01 Morbid (severe) obesity due to excess calories; J20.9 Acute bronchitis, unspecified; M79.7 Fibromyalgia; E87.2 Acidosis; R00.0 Tachycardia, unspecified; I10 Essential (primary) hypertension; G89.29 Other chronic pain; M25.559 Pain in unspecified hip; M25.519 Pain in unspecified shoulder; D72.829 Elevated white blood cell count, unspecified; Z68.42 Body mass index [BMI] 45.0-49.9, adult; Z86.16 Personal history of COVID-19; Z98.51 Tubal ligation status; Z79.84 Long term (current) use of oral hypoglycemic drugs
CPT/HCPCS: 36415; 71045; 71275; 78580; 80053; 82140; 82550; 82728; 82947; 83615; 83880; 84145; 84443; 84484; 85025; 85379; 85610; 85730; 86140; 87040; 87086; 93005; 93306; 93970; 96361; 96365; 96367; 96372; 96375; 96376; 99291; A9540; G0378; J0456; J0696; J1650; J1885; J2270; J7030; Q9967; U0003